=== PATIENT | female | born 1955 | race Asian ===

== ENCOUNTER 2016-07-09 11:23 | Outpatient (CLI) | payer BC | END 2016-07-09 12:23 | disposition home or self-care (01) | LOC: MAMMO 11:23 | DX: Z12.31 Encounter for screening mammogram for malignant neoplasm of breast (principal) | CPT/HCPCS: G0202-TC ==

== ENCOUNTER 2016-07-16 13:52 | Outpatient (CLI) | payer BC | END 2016-07-16 19:34 | disposition home or self-care (01) | LOC: MAMMO 13:52 | DX: R92.8 Other abnormal and inconclusive findings on diagnostic imaging of breast (principal) | CPT/HCPCS: 77056; G0206 ==

== ENCOUNTER 2018-09-23 10:43 | Emergency (ER) | payer OTHER ==
[~2018-09-23] VITALS: Ht 152.4 cm; Wt 86.2 kg
[2018-09-23] MEDS ORDERED: AMLODIPINE BESYLATE PO (10:59)
[2018-09-23] MEDS ORDERED: METOPROLOL25 M1 PO (10:59)
[2018-09-23] MEDS ORDERED: HYDROCHLOROT12.5 M1 PO (11:00)
[2018-09-23 12:25] VITALS: BP 132/83; TEMP 98.3
== END 2018-09-23 12:31 | disposition home or self-care (01) ==
LOC: ED 10:43
DX: M54.5 Low back pain (principal); M62.830 Muscle spasm of back; X50.1XXA Overexertion from prolonged static or awkward postures, initial encounter; Y92.89 Other specified places as the place of occurrence of the external cause
CPT/HCPCS: 96372; 99282; J1885

== ENCOUNTER 2019-01-13 12:48 | Outpatient (CLI) | payer OTHER ==
[~2019-01-13 12:48] MED LIST: AMLODIPINE BESYLATE PO; HYDROCHLOROT12.5 M1 PO; METOPROLOL25 M1 PO
== END 2019-01-13 23:47 | disposition home or self-care (01) ==
LOC: MAMMO 12:48
DX: N64.4 Mastodynia (principal)

== ENCOUNTER 2019-02-01 09:00 | Outpatient (CLI) | payer OTHER | END 2019-02-01 23:42 | disposition home or self-care (01) | LOC: RESP 09:00 | DX: G56.03 Carpal tunnel syndrome, bilateral upper limbs (principal); G56.21 Lesion of ulnar nerve, right upper limb | CPT/HCPCS: 95885; 95911 ==

== ENCOUNTER 2019-03-16 10:15 | Outpatient (CLI) | payer OTHER | END 2019-03-16 20:07 | disposition home or self-care (01) | LOC: RAD 10:15 | DX: M25.562 Pain in left knee (principal) ==

== ENCOUNTER 2019-06-23 12:21 | Outpatient (CLI) | payer OTHER | END 2019-06-23 19:31 | disposition home or self-care (01) | LOC: US 12:21 | DX: M79.604 Pain in right leg (principal) ==

== ENCOUNTER 2020-05-03 12:01 | Outpatient (CLI) | payer OTHER ==
[2020-05-03 12:43] LABS: PLATELET COUNT 188 K/uL (152-353)
[2020-05-03 12:44] LABS: POTASSIUM 2.8 mmol/L (3.6-5.2); SODIUM 136 mmol/L (136-145)
== END 2020-05-03 23:16 | disposition home or self-care (01) ==
LOC: LABW 12:01
PROVIDERS: Nurse Practitioner Family
DX: R07.89 Other chest pain (principal)
CPT/HCPCS: 36415; 80053; 82550; 82553; 84484; 85027; 85379

== ENCOUNTER 2020-05-03 15:03 | Emergency (ER) | payer OTHER ==
[~2020-05-03] VITALS: Ht 152.4 cm; Wt 86.2 kg
[2020-05-03 15:17] VITALS: BP 121/78; TEMP 98.2
[2020-05-03 15:55] LABS: PLATELET COUNT 190 K/uL (152-353)
[2020-05-03 15:57] LABS: POTASSIUM 2.5 mmol/L (3.6-5.2); SODIUM 138 mmol/L (136-145)
[2020-05-03 16:07] LABS: PARTIAL THROMBOPLASTIN TIME 26.1 SECONDS (24.5-33.6)
== END 2020-05-03 17:17 | disposition home or self-care (01) ==
LOC: ED 15:03
PROVIDERS: Hospitalist
DX: R07.89 Other chest pain (principal); E87.6 Hypokalemia
CPT/HCPCS: 80053; 82550; 82553; 83880; 84484; 85027; 85610; 85730; 93005; 99283

== ENCOUNTER 2020-05-14 15:39 | Outpatient (CLI) | payer OTHER ==
[2020-05-14 16:29] LABS: POTASSIUM 4.3 mmol/L (3.6-5.2)
== END 2020-05-14 19:13 | disposition home or self-care (01) ==
LOC: LABW 15:39
PROVIDERS: Nurse Practitioner Family
DX: M62.82 Rhabdomyolysis (principal)
CPT/HCPCS: 36415; 80053; 82550; 82553; 85651

== ENCOUNTER 2021-04-25 14:59 | Outpatient (CLI) | payer OTHER | END 2021-04-25 19:01 | disposition home or self-care (01) | LOC: MAMMO 14:59 | PROVIDERS: ATTEND Nurse Practitioner Family | DX: Z12.31 Encounter for screening mammogram for malignant neoplasm of breast (principal) ==

== ENCOUNTER 2021-05-14 08:52 | Outpatient (CLI) | payer OTHER | END 2021-05-14 18:57 | disposition home or self-care (01) | LOC: MAMMO 08:52 | PROVIDERS: ATTEND Family Medicine | DX: R92.8 Other abnormal and inconclusive findings on diagnostic imaging of breast (principal) ==

== ENCOUNTER 2021-06-15 11:12 | Outpatient (CLI) | payer OTHER ==
[2021-06-15 11:59] LABS: POTASSIUM 4.1 mmol/L (3.6-5.2)
== END 2021-06-15 19:02 | disposition home or self-care (01) ==
LOC: LABW 11:12
PROVIDERS: ATTEND Nurse Practitioner Family
DX: M94.0 Chondrocostal junction syndrome [Tietze] (principal); R07.89 Other chest pain
CPT/HCPCS: 36415; 80053; 82550; 82553; 84484; 93005

== ENCOUNTER 2021-09-17 12:52 | Outpatient (CLI) | payer OTHER | END 2021-09-17 19:04 | disposition home or self-care (01) | LOC: RESP 12:52 → MRI 15:00 → RESP 19:04 | PROVIDERS: ATTEND Nurse Practitioner Family | DX: G56.03 Carpal tunnel syndrome, bilateral upper limbs (principal) | CPT/HCPCS: 95885; 95913 ==

== ENCOUNTER 2021-09-26 09:13 | Outpatient (CLI) | payer OTHER | END 2021-09-26 19:57 | disposition home or self-care (01) | LOC: MRI 09:13 | PROVIDERS: ATTEND Nurse Practitioner Family | DX: M54.17 Radiculopathy, lumbosacral region (principal) ==

== ENCOUNTER 2022-05-22 10:16 | Outpatient (CLI) | payer OTHER | END 2022-05-22 18:57 | disposition home or self-care (01) | LOC: RAD 10:16 | PROVIDERS: ATTEND Nurse Practitioner Family | DX: M94.0 Chondrocostal junction syndrome [Tietze] (principal) ==

== ENCOUNTER 2022-06-26 09:08 | Outpatient (CLI) | payer OTHER ==
[2022-06-26 09:30] LABS: PLATELET COUNT 173 K/uL (152-353)
[2022-06-26 09:44] LABS: POTASSIUM 3.8 mmol/L (3.6-5.2)
== END 2022-06-26 21:33 | disposition home or self-care (01) ==
LOC: LABW 09:08
PROVIDERS: ATTEND Nurse Practitioner Family
DX: R07.89 Other chest pain (principal)
CPT/HCPCS: 36415; 80053; 82150; 82550; 83690; 84484; 85027; 93005

== ENCOUNTER 2022-07-03 10:03 | Outpatient (CLI) | payer OTHER | END 2022-07-03 18:51 | disposition home or self-care (01) | LOC: RAD 10:03 | PROVIDERS: ATTEND Physician Assistant | DX: M54.6 Pain in thoracic spine (principal) ==

== ENCOUNTER 2022-07-28 14:33 | Outpatient (CLI) | payer OTHER | END 2022-07-28 19:26 | disposition home or self-care (01) | LOC: MRI 14:33 | PROVIDERS: ATTEND Physician Assistant | DX: M54.6 Pain in thoracic spine (principal) ==

== ENCOUNTER 2023-01-21 07:51 | Outpatient (CLI) | payer OTHER ==
[2023-01-21 08:36] LABS: PLATELET COUNT 172 K/uL (152-353)
== END 2023-01-21 19:55 | disposition home or self-care (01) ==
LOC: LABW 07:51
PROVIDERS: ATTEND Nurse Practitioner Family
DX: R00.2 Palpitations (principal)
CPT/HCPCS: 36415; 80053; 82550; 82553; 84484; 85027; 93005

== ENCOUNTER 2023-03-05 08:24 | Outpatient (CLI) | payer OTHER | END 2023-03-05 20:42 | disposition home or self-care (01) | LOC: MAMMO 08:24 | PROVIDERS: ATTEND Nurse Practitioner Family | DX: N64.4 Mastodynia (principal) | CPT/HCPCS: G0279 ==

== ENCOUNTER 2023-03-23 08:01 | Outpatient (CLI) | payer OTHER | END 2023-03-23 21:11 | disposition home or self-care (01) | LOC: RAD 08:01 | PROVIDERS: ATTEND Physician Assistant | DX: M25.561 Pain in right knee (principal) ==